=== PATIENT | male | born 1955 | race Hispanic/Latino ===

== ENCOUNTER 2019-03-03 06:37 | Outpatient (CLI) | payer MEDICAID ==
[2019-03-03 07:03] LABS: Hematocrit 45.6 % (35.5-45.6); Hemoglobin 15.7 gm/dl (11.8-15.2); Mean Corpuscular HGB Conc 34 % (32-34); Mean Corpuscular Volume 93 fl (84-94); Platelet Count 199 K/mm3 (140-440); Red Blood Count 4.91 M/mm3 (3.65-5.03)
[2019-03-03 07:27] LABS: Alanine Aminotransferase 41 units/L (7-56); Albumin 4.5 g/dL (3.9-5); BUN/Creatinine Ratio 17; Blood Urea Nitrogen 15 mg/dL (9-20); Hemolysis Index 4
--- NOTE | 2019-03-03 08:40 | Cat Scan Report ---
CT CHEST WITH CONTRAST INDICATION / CLINICAL INFORMATION: R91.8) Other nonspecific abnormal finding of lung field. TECHNIQUE: Axial CT images were obtained through the chest after 100 cc of Omnipaque 300 IV contrast. Sagittal a nd coronal reformatted images. All CT scans at this location are performed using CT dose reduction fo r ALARA by means of automated exposure control. COMPARISON: None available. FINDINGS: HEART: No significant abnormality. THORACIC AORTA: No significant abnormality. MEDIASTINUM and YOUSIF: No significant abnormality. LUNGS: No acute air space or interstitial disease. PLEURA: No significant pleural effusion. No pneumothorax. SKELETAL SYSTEM: Mild thoracic spondylosis. No fracture or suspicious bony lesion. UPPER ABDOMEN: Moderate fatty infiltration of the visualized liver. ADDITIONAL FINDINGS: On the law librarian image, there is an ill-defined opacity in the lingular region. This appears to correspond to prominent pericardial fat. IMPRESSION: Unremarkable CT chest with contrast. Moderate hepatic steatosis. Signer Name: Estevan Navarro Jr, MD Signed: 03/03/2019 8:36 AM Workstation Name: [id number]
== END 2019-03-03 06:38 | disposition home or self-care (01) ==
LOC: CT 06:37
PROVIDERS: ATTEND Internal Medicine
DX: R91.8 Other nonspecific abnormal finding of lung field (principal); K76.0 Fatty (change of) liver, not elsewhere classified
CPT/HCPCS: 36415; 71260; 80053; 85027

== ENCOUNTER 2019-05-30 08:00 | Outpatient (CLI) | payer MEDICAID ==
--- NOTE | 2019-05-30 09:40 | Cat Scan Report ---
CT ABDOMEN AND PELVIS WITHOUT CONTRAST HISTORY: C61 MALIGNANT NEOPLASM OF PROSTATE COMPARISON: None. TECHNIQUE: Axial CT images were obtained through the abdomen and pelvis without IV contrast. Sagittal and coronal reformatted images. All CT scans at this location are performed using CT dose reduction for ALARA by means of automated exposure control. FINDINGS: CT ABDOMEN: Lung Bases: Clear. Liver: No significant abnormality. Biliary: No significant abnormality. Spleen: No significant abnormality. Unenlarged. Pancreas: No significant abnormality. Adrenals: No significant abnormality. Kidneys: A few punctate calyceal stones are identified in both kidneys. The kidneys and renal collect ing systems are unremarkable otherwise. Lymphatics: No lymphadenopathy. Vasculature: No significant abnormality. Bowel/Peritoneum: Mild diverticulosis of the distal colon is demonstrated. No obstruction or focal in flammation. No free air. No free fluid. Normal appendix. CT PELVIS: : The prostate gland is mildly enlarged measuring 5.1 cm in diameter. The bladder and distal ureter s are within normal limits. Osseous Structures: No significant abnormality. No blastic or lytic bony lesions are detected. Additional Findings: None IMPRESSION: No acute process or evidence for metastatic disease. Punctate bilateral renal stones, nonobstructing. Diverticulosis of the distal colon. Mild enlargement of the prostate gland. Signer Name: Estevan Navarro Jr, MD Signed: 05/30/2019 9:35 AM Workstation Name: [id number]
--- NOTE | 2019-05-30 12:32 | Nuclear Medicine Report ---
NUCLEAR MEDICINE BONE SCAN, WHOLE BODY INDICATION: C61 MALIGNANT NEOPLASM OF PROSTATE. TECHNIQUE: 26 mCi of Tc-99m MDP were injected IV. Whole body images were obtained. COMPARISON: CT abdomen pelvis without contrast performed the same day.. FINDINGS: Skeletal Structures: Fairly symmetric, likely degenerative uptake is present involving the shoulders , sternoclavicular joints, elbows, wrists, right hip, knees and ankles.. Skeletal Lesions: None. Soft Tissues: Normal. Kidneys: Normal, symmetric activity. Additional Findings: None. IMPRESSION: Degenerative findings as described. No evidence for osseous metastasis. Signer Name: Estevan Navarro Jr, MD Signed: 05/30/2019 12:27 PM Workstation Name: [id number]
== END 2019-05-30 08:01 | disposition home or self-care (01) ==
LOC: NM 08:00
PROVIDERS: ATTEND Urology
DX: N40.0 Benign prostatic hyperplasia without lower urinary tract symptoms (principal); N20.0 Calculus of kidney; K57.30 Diverticulosis of large intestine without perforation or abscess without bleeding; M89.8X9 Other specified disorders of bone, unspecified site
CPT/HCPCS: 74176; 78306; A9503

== ENCOUNTER 2022-01-11 18:14 | Emergency (ER) | payer MEDICAID | END 2022-01-11 21:40 | disposition left against medical advice (07) | LOC: ED 18:14 | DX: S69.91XA Unspecified injury of right wrist, hand and finger(s), initial encounter (principal); Z53.21 Procedure and treatment not carried out due to patient leaving prior to being seen by health care provider; X58.XXXA Exposure to other specified factors, initial encounter; Y93.89 Activity, other specified; Y92.89 Other specified places as the place of occurrence of the external cause; Y99.8 Other external cause status ==